=== PATIENT | male | born 1930 | race Caucasian/White ===

== ENCOUNTER 2018-06-08 10:13 | Emergency (ER) | payer MEDICARE, OTHER ==
--- NOTE | 2018-06-08 10:18 | PDOC ---
History of Present Illness - General Chief Complaint: Edema Stated Complaint: SENT BY CT SCAN AFTER INFILTRATION OF IV Time Seen by Provider: 06/08/18 10:16 Past History - Past Medical History Allergies/Adverse Reactions: Allergies Allergy/AdvReac Type Severity Reaction Status Date / Time No Known Allergies Allergy Unverified 07/28/12 11:24 Home Medications: Ambulatory Orders Atorvastatin Ca [Lipitor (Restricted To Cardiology)] 10 mg PO HS 07/28/12 Hydralazine HCl 50 mg PO DAILY 07/28/12 Losartan-Hctz 100-25 mg Tab mg OD DAILY 07/28/12 Metoprolol Succinate [Toprol XL] 50 mg PO DAILY 07/28/12 Nifedipine [Nifedipine Xl] 30 mg PO DAILY 07/28/12 Warfarin Na [Coumadin] 3 mg PO UTDICT 07/28/12 Warfarin Sodium 4 mg PO UTDICT 07/28/12 Cardiac Disorders: Yes (PACEMAKER) HTN: Yes - Suicide/Smoking/Psychosocial Hx Smoking Status: No Smoking History: Never smoked Number of Cigarettes Smoked Daily: 0 *DC/Admit/Observation/Transfer Diagnosis at time of Disposition: IV infiltrate - Discharge Dispostion Disposition: HOME Condition at time of disposition: Stable Decision to Admit order: No - Referrals - Patient Instructions Additional Instructions: Apply warm compresses to the arm 3-4 times a day until the swelling improves. Follow up with Dr. Sanchez within 1-2 days Return to the emergency department if you have any new, worsening, or concerning symptoms such as color change to the arm, numbness, tingling, weakness, fevers. - Post Discharge Activity - Attestations Physician Attestion: 06/08/18 10:18 I, Dr. Savita Lincoln MD, attest that this document has been prepared under my direction and personally reviewed by me in its entirety. I further attest, that it accurately reflects all work, treatment, procedures and medical decision -making performed by me.
[2018-06-08 10:27] VITALS: BP 150/103; PULSE 73; TEMP 98.2; BMI 25.8
--- NOTE | 2018-06-08 10:31 | PDOC ---
History of Present Illness - General Chief Complaint: Edema Stated Complaint: SENT BY CT SCAN AFTER INFILTRATION OF IV Time Seen by Provider: 06/08/18 10:16 - History of Present Illness Initial Comments: The patient is an 88M who presents from CT 06/26 contrast infiltration into his L brachium. He presented for evaluation and care instructions. The patient denies pain in the arm, denies changes in sensation, denies changes in strength. IV still in place. Patient denies recent illness/fevers, denies baseline changes in sensation, 06/08/18 10:26 Past History - Past Medical History Allergies/Adverse Reactions: Allergies Allergy/AdvReac Type Severity Reaction Status Date / Time No Known Allergies Allergy Unverified 07/28/12 11:24 Home Medications: Ambulatory Orders Atorvastatin Ca [Lipitor (Restricted To Cardiology)] 10 mg PO HS 07/28/12 Hydralazine HCl 50 mg PO DAILY 07/28/12 Metoprolol Succinate [Toprol XL] 50 mg PO DAILY 07/28/12 Nifedipine [Nifedipine Xl] 30 mg PO DAILY 07/28/12 Warfarin Na [Coumadin] 3 mg PO UTDICT 07/28/12 Cardiac Disorders: Yes (PACEMAKER) HTN: Yes - Suicide/Smoking/Psychosocial Hx Smoking Status: No Smoking History: Never smoked Number of Cigarettes Smoked Daily: 0 Review of Systems - Review of Systems Able to Perform ROS?: Yes Comments:: GENERAL/CONSTITUTIONAL: No fever or chills. No weakness HEAD, EYES, EARS, NOSE AND THROAT: No change in vision. No ear pain or discharge. No sore throat GASTROINTESTINAL: No nausea, vomiting, diarrhea or constipation MUSCULOSKELETAL per HPI SKIN: No rash NEUROLOGIC: No headache, vertigo, loss of consciousness, or change in strength/ sensation HEMATOLOGIC/LYMPHATIC: No anemia, easy bleeding, or history of blood clots 06/08/18 10:33 Is the patient limited Maori proficient: No *Physical Exam - Vital Signs Vital Signs Temp Pulse Resp BP Pulse Ox 98.2 F 73 20 150/103 H 99 06/08/18 10:15 06/08/18 10:15 06/08/18 10:15 06/08/18 10:15 06/08/18 10:06/08/18 10:28 - Physical Exam Comments: GENERAL: Awake, alert, and fully oriented, in no acute distress HEAD: No signs of trauma, normocephalic, atraumatic EYES: PERRLA, EOMI, sclera anicteric, conjunctiva clear ENT: Hearing grossly normal, nares patent, oropharynx clear without exudates. Moist mucosa LUNGS: No distress, speaks full sentences, clear to auscultation bilaterally HEART: Regular rate and rhythm, normal S1 and S2, no murmurs appreciated, peripheral pulses normal and equal bilaterally ABDOMEN: Soft, nontender, normoactive bowel sounds. No guarding, no rebound EXTREMITIES : L medical brachium induration, no TTP, no erythema, FROM in BUE. NEUROLOGICAL: Cranial nerves II through XII grossly intact. Normal speech, normal gait, no focal sensorimotor deficits. Sensation equal and intact in BUE SKIN: Warm, Dry 06/08/18 10:31 Medical Decision Making - Medical Decision Making The patient is an 88 who presents for evaluation s/p contrast infiltration 2/[address] w/ IV contrast today at . ED Course -IV removed -Warm compress applied -Care instructions given, including to continue to apply warm compresses and keep the extremity elevated Discharge instructions and return precautions given Plan for D/C w/ PCP f/u Patient in agreement and verbalizes understanding Dispo: Home 06/08/18 10:35 *DC/Admit/Observation/Transfer Diagnosis at time of Disposition: IV infiltrate Qualifiers: Encounter type: initial encounter Qualified Code(s): T80.1XXA - Vascular complications following infusion, transfusion and therapeutic injection, initial encounter - Discharge Dispostion Disposition: HOME Condition at time of disposition: Stable - Referrals Referrals: Juan Francisco Aguiar MD [Staff Physician] - - Patient Instructions Additional Instructions: Apply warm compresses to the arm 3-4 times a day until the swelling improves. Follow up with Dr. Sanchez within 1-2 days Return to the emergency department if you have any new, worsening, or concerning symptoms such as color change to the arm, numbness, tingling, weakness, fevers. - Post Discharge Activity
--- NOTE | 2018-06-08 12:17 | PDOC ---
Attending Attestation - Resident Resident Name: James Tam - ED Attending Attestation I have performed the following: I have examined & evaluated the patient, The case was reviewed & discussed with the resident, I agree w/resident's findings & plan, Exceptions are as noted - HPI HPI: 06/08/18 12:15 88yo M presents to the ED from the CT scan suite after IV contrast infiltration. Per scheme technician, pt getting CTAP pancreatic protocol and left PIV infiltrated after contrast injection. Pt denies any symptoms of pain, numbness, tingling, weakness in LUE. Denies any symptoms at all. - Physicial Exam PE: 06/08/18 12:17 GENERAL: Awake, alert, and fully oriented, in no acute distress NECK: Normal ROM, supple LUNGS: Breath sounds equal, clear to auscultation bilaterally. No wheezes, and no crackles HEART: Regular rate and rhythm, normal S1 and S2, no murmurs, rubs or gallops ABDOMEN: Soft, nontender, normoactive bowel sounds. No guarding, no rebound. No masses EXTREMITIES: LUE with distal arm PIV in place with leaked contrast around the IV. Skin more proximal to the IV indurated without erythema or edema consistent with infiltration. Entire LUE with no ttp. Normal strength and sensation distally. Compartments soft. 2+ radial pulse. NEUROLOGICAL: Normal speech, cranial nerves intact SKIN: As noted above - Medical Decision Making 06/08/18 12:20 88yo M presents to the ED with infiltrated IV line. LUE NVI with no pain. Compress placed. Precautions given to pt to return if any pain, weakness, tingling, or color change, or numbness. Pt's BP elevated, pt states it is often elevated. Will see Dr. Sanchez in next few days, recommended rpt bp when he sees him. Pt asymptomatic at this time. Requests DC home I discussed the physical exam findings, ancillary test results and final diagnoses with the patient. I answered all of the patient's questions. The patient was satisfied with the care received and felt comfortable with the discharge plan and treatment plan. The patient will call their primary care physician within 24 hours to arrange follow-up and will return to the Emergency Department with any new, persistent or worsening symptoms.
== END 2018-06-08 11:00 | disposition home or self-care (01) ==
LOC: FER 10:13
DX: T80.1XXA Vascular complications following infusion, transfusion and therapeutic injection, initial encounter (principal)
CPT/HCPCS: 99281-25